=== PATIENT | male | born 1960 | race Caucasian/White ===

== ENCOUNTER 2016-06-29 11:37 | Emergency (ER) | payer MEDICARE | END 2016-06-29 12:22 | disposition home or self-care (01) | LOC: D.ER 11:37 | DX: K02.9 Dental caries, unspecified (principal); K08.89 Other specified disorders of teeth and supporting structures; F41.0 Panic disorder [episodic paroxysmal anxiety]; K05.10 Chronic gingivitis, plaque induced; J44.9 Chronic obstructive pulmonary disease, unspecified; I10 Essential (primary) hypertension; F17.200 Nicotine dependence, unspecified, uncomplicated ==

== ENCOUNTER → 2016-12-14 09:07 | Outpatient (CLI) | payer MEDICARE ==
[~2016-12-14 09:07] MED LIST: ACETAMINOPHEN500 M1 PO; BREO ELLIPTA 21 EACH; INCRUSE ELLI62.5 MCG INH; KLONOPIN1 MG PO; LISINOPRIL10 MG PO; PROAIR HFA8.5 GM INH; ULTRAM50 MG PO
[2017-04-17 07:31] VITALS: BMI 30.4
== END | disposition home or self-care (01) ==
LOC: D.RT 09:07
DX: J44.9 Chronic obstructive pulmonary disease, unspecified (principal)

== ENCOUNTER 2017-01-25 05:26 | Day surgery (SDC) | payer MEDICARE ==
[2017-01-24 08:45] LABS: HEMATOCRIT 50.8 % (42.0-54.0); HEMOGLOBIN 17.9 g/dL (13.5-17.5); MCH 32.3 pg (26.0-34.0); MCHC 35.2 g/dL (31.0-37.0); MCV 91.7 fL (80.0-100.0); MEAN PLATELET VOLUME 10.4 fL (7.4-10.4); RBC 5.54 10x6/uL (4.20-6.10); RDW 13.1 % (11.5-14.5); WBC 8.8 10x3/uL (4.8-10.8)
[~2017-01-25] VITALS: Ht 205.7 cm; Wt 124.7 kg
[~2017-01-25 05:26] MED LIST changes: -ACETAMINOPHEN500 M1 PO
[2017-01-25 06:00] VITALS: BP 137/80; Ht 205.7 cm; Wt 124.7 kg
--- NOTE | 2017-01-25 10:16 | OP ---
PATIENT NAME: RUEL MONTAGUE MEDICAL RECORD: [id number] :64 LOCATION:[facility] ADMISSION DATE: SURGEON: GUSTABO GUERRA MD DATE OF OPERATION: 01/25/2017 SURGEON: Gustabo Guerra MD ANESTHESIA: General anesthesia. PREOPERATIVE DIAGNOSIS: Right hydrocele. PROCEDURE: Right hydrocelectomy, Jaboulay procedure. FINDINGS: Right hydrocele 250 mL. SPECIMENS: Hydrocele sac. BLOOD LOSS: None. CLINICAL HISTORY: This is a 56-year-old male, who has had a hydrocele on the right side since March of this year. It has progressively gotten larger in size and more tense. The tenseness has actually been giving him pain. He was taking care of his father who finally of metastatic esophageal cancer. He now wishes to have this attended to. He has a history of severe COPD from heavy smoking in the past. He had pulmonary clearance from Dr. Leach. He is not allergic to any medications. He was given Ancef 2 grams IV oncology technician to the OR. DESCRIPTION OF PROCEDURE: The patient was given induction of general anesthetic in supine position. He was then shaved, prepped and draped. A midline incision about 3 cm in length was made in the median rhaphe of the scrotum. We went down to the dartos fascia with cautery. The tunica vaginalis was entered using the cautery and then extended using Metzenbaum scissors. About 250 mL of fluid were drained out with the suction tip. The testicle was then everted out through the incision. Using Allis clamps on the edges of the tunica vaginalis, the excess of hydrocele sac was excised using the Bovie. All bleeding points were cauterized. The 2 folds of the tunica vaginalis were reapproximated behind the cord using a running 3-0 Vicryl. The testicle was then put back into its hemiscrotum. The dartos fascia was reapproximated using running 3-0 Vicryl. Finally, a 4-0 Vicryl in simple interrupted fashion was placed to close the skin. A 0.25% Marcaine with epinephrine was placed around the incision for local anesthetic. He was given fluffs and mesh panties. I will see him in followup in 2 weeks' time. TRANSINT:[id number] Voice Confirmation ID: [id number] DOCUMENT ID: [id number] GUSTABO GUERRA MD at 1016 CC: [id number] DICTATION DATE: 01/25/17840 SETTER COLD ROLLING MACHINE: 01/25/17 0943 [place] [id number] [place] [id number]
== END 2017-01-25 10:45 | disposition home or self-care (01) ==
LOC: D.OPS 05:26 → D.PAN 07:30 → D.OPS 07:30
PROVIDERS: Anesthesiology
DX: N43.3 Hydrocele, unspecified (principal); F17.200 Nicotine dependence, unspecified, uncomplicated; J45.909 Unspecified asthma, uncomplicated; I10 Essential (primary) hypertension; J44.9 Chronic obstructive pulmonary disease, unspecified; Z01.812 Encounter for preprocedural laboratory examination

== ENCOUNTER 2017-04-17 06:31 | Day surgery (SDC) | payer MEDICARE ==
[~2017-04-17] VITALS: Ht 208.3 cm; Wt 131.5 kg
--- NOTE | ~2017-04-17 | OP ---
PATIENT NAME: RUEL MONTAGUE MEDICAL RECORD: [id number] :64 LOCATION:[facility] ADMISSION DATE: SURGEON: EASTON BRYANT MD DATE OF OPERATION: 04/17/2017 PREOPERATIVE DIAGNOSES: 1. Right inguinal hernia. 2. Chronic obstructive pulmonary disease. 3. Hypertension. 4. Asthma. 5. Tobacco dependence syndrome. POSTOPERATIVE DIAGNOSES: 1. Right inguinal hernia. 2. Chronic obstructive pulmonary disease. 3. Hypertension. 4. Asthma. 5. Tobacco dependence syndrome. PROCEDURE: Right inguinal hernia repair with PHS mesh. SURGEON: Easton Bryant MD REPORT OF PROCEDURE: The patient's right groin was prepped and draped in sterile fashion. An oblique incision was made above the inguinal ligament. Electrocautery was used to dissect through the subcutaneous tissue to the external oblique fascia. This fascia was incised with electrocautery to the external ring. The spermatic cord was elevated and a [place] was placed around it. The patient had a moderate size indirect hernia defect that was fat containing. This was high ligated and pushed back into the abdominal cavity. The patient had some laxity to the floor of the inguinal canal. An opening was made in the base of the inguinal floor and the preperitoneal space of Retzius was opened up. A large PHS mesh was cut on its undersurface down to the size of medium PHS mesh and placed into the preperitoneal space of Retzius. This was sutured down on all 4 sides using interrupted 0 Vicryls. The patient ilioinguinal nerve was found and high ligated. At this point, we elevated the testicle out of the patient's scrotum. There was some scar tissue that was present around the testicle, which seem to be causing some kinking of the tissue. I was able to release the scar tissue. The testicle itself appeared to be normal with no sign of a hydrocele. At this point, the testicle was placed back into the right hemiscrotum. The wound was then irrigated out thoroughly with normal saline. The external oblique fascia was then closed with running 2-0 Vicryl, Darci's was closed with interrupted 3-0 Vicryl and the skin was closed with running subcutaneous 5-0 Monocryl. A 10 mL of 0.25% Marcaine with epinephrine were infused into the surrounding tissues. The wounds were dressed appropriately. COMPLICATIONS: None. CONDITION: Stable. ANESTHESIA: General endotracheal and local. BLOOD LOSS: Minimal. OPERATIVE REPORT [id number] RUEL MONTAGUE TRANSINT:[id number] Voice Confirmation ID: [id number] DOCUMENT ID: [id number] EASTON BRYANT MD CC: JAKUB GUERRA MD [id number] DICTATION DATE: 04/17/17 1030 SKIN GRADER: 04/17/17 1126 [facility] [address] [place] [id number]
[2017-04-17] MEDS ORDERED: ACETAMINOPHEN500 M1 PO (07:30)
[2017-04-17 07:31] VITALS: BP 128/78; Ht 208.3 cm; Wt 131.5 kg
[2017-04-17 07:57] LABS: BASOPHILS 0.2 % (0-2); EOSINOPHILS 0.7 % (0-7); HEMOGLOBIN 15.3 g/dL (13.5-17.5); IMMATURE GRANULOCYTES 0.1 % (0-5); LYMPHOCYTES 23.5 % (15-50); MCH 32.2 pg (26.0-34.0); MCHC 34.8 g/dL (31.0-37.0); MCV 92.6 fL (80.0-100.0); MEAN PLATELET VOLUME 10.4 fL (7.4-10.4); MONOCYTES 12.8 % (2-11); NEUTROPHILS 62.7 % (40-80); PLATELET COUNT 204 10x3/uL (130-400); RBC 4.75 10x6/uL (4.20-6.10); WBC 8.3 10x3/uL (4.8-10.8)
[2017-04-17 08:06] LABS: CALC OSMOLALITY 287 mosm/kg (275-300); CALCIUM 8.8 mg/dL (8.5-10.1); CARBON DIOXIDE 26.9 mmol/L (21.0-32.0); CHLORIDE - SERUM 108 mmol/L (98-107); CREATININE - SERUM 0.7 mg/dL (0.6-1.3); GLUCOSE 126 mg/dL (74-106); POTASSIUM - SERUM 4.2 mmol/L (3.5-5.1); SODIUM 143 mmol/L (136-145); UREA NITROGEN 14 mg/dL (7-18); eGFR NON AFRICAN AMERICAN > 90 mL/min (90-120)
[2017-04-17] MEDS ORDERED: ULTRAM50 MG PO (10:26)
== END 2017-04-17 13:35 | disposition home or self-care (01) ==
LOC: D.OPS 06:31 → D.PAN 11:20 → D.OPS 12:00 → D.PAN 12:00 → D.OPS 13:35
PROVIDERS: Surgery
DX: K40.90 Unilateral inguinal hernia, without obstruction or gangrene, not specified as recurrent (principal); J44.9 Chronic obstructive pulmonary disease, unspecified; I10 Essential (primary) hypertension; F17.200 Nicotine dependence, unspecified, uncomplicated; Z01.812 Encounter for preprocedural laboratory examination